=== PATIENT | female | born 1995 | race Caucasian/White ===

== ENCOUNTER 2018-07-30 00:49 | Emergency (ER) | payer OTHER ==
--- NOTE | 2018-07-30 01:12 | NUR ---
PT DOES NOT WISH TO BE SEEN AND IS LEAVING THE ER
== END 2018-07-30 01:19 | disposition left against medical advice (07) ==
LOC: ER 00:58
DX: Z53.21 Procedure and treatment not carried out due to patient leaving prior to being seen by health care provider (principal)